=== PATIENT | female | born 1965 | race Caucasian/White ===

== ENCOUNTER 2018-11-14 08:22 | Emergency (ER) | payer BC ==
[2018-11-14 08:34] VITALS: BP 140/84
--- NOTE | 2018-11-14 09:02 | UC ---
Throat Pain/Nasal Melvin HPI - HPI Summary HPI Summary: The patient is a 53-year-old female that has had nasal congestion and postnasal drip as well as a mild sore throat for about 1 week. She has a moderate left occipital headache. She has had a low-grade temperature. She has had some mild myalgias as well as fatigue. - History of Current Complaint Chief Complaint: UCRespiratory Stated Complaint: SINUS Time Seen by Provider: 11/14/18 08:52 Hx Obtained From: Patient Hx Last Menstrual Period: hysterectomy 10 yrs ago Onset/Duration: Gradual Onset, Lasting Days Severity: Severe Pain Intensity: 8 Pain Scale Used: 0-10 Numeric Cough: None Associated Signs & Symptoms: Positive: Sinus Discomfort, Nasal Discharge, Fever - halima - Epiglottits Risk Factors Epiglottis Risk Factors: Negative - Allergies/Home Medications Allergies/Adverse Reactions: Allergies Allergy/AdvReac Type Severity Reaction Status Date / Time erythromycin base Allergy GI Upset Verified 11/14/18 08:34 Home Medications: Home Medications Acetaminophen [APAP] 650 mg PO 11/14/18 [History] Dm/Acetaminophen/Doxylamine [Vicks Nyquil Cold & Flu N 15-6.25-325 mg] 1 cap PO 11/14/18 [History] PMH/Surg Hx/FS Hx/Imm Hx Previously Healthy: Yes - Surgical History Surgical History: Yes Surgery Procedure, Year, and Place: hysterectomy 2003. . lt acl repair. D&C's - Family History Known Family History: Positive: Cardiac Disease, Hypertension, Diabetes - Social History Alcohol Use: Occasionally Substance Use Type: None Smoking Status (MU): Never Smoked Tobacco Review of Systems All Other Systems Reviewed And Are Negative: Yes Constitutional: Positive: Fever - halima, Fatigue Eyes: Positive: Negative ENT: Positive: Nasal Discharge, Sinus Congestion Respiratory: Positive: Cough Cardiovascular: Positive: Negative Gastrointestinal: Positive: Negative Musculoskeletal: Positive: Negative Neurological: Positive: Headache Psychological: Positive: Negative Is Patient Immunocompromised?: No Physical Exam Triage Information Reviewed: Yes Appearance: Well-Appearing, No Pain Distress, Well-Nourished Vital Signs: Initial Vital Signs Temp 98.4 F 11/14/18 08:30 Pulse 76 11/14/18 08:30 Resp 18 11/14/18 08:30 BP 140/84 11/14/18 08:30 Pulse Ox 98 11/14/18 08:30 Vital Signs Reviewed: Yes Eyes: Positive: Conjunctiva Clear ENT: Positive: Hearing grossly normal, Nasal congestion, Nasal drainage, Sinus tenderness - L>R Dental Exam: Normal Neck: Positive: Supple, Nontender, No Lymphadenopathy Respiratory: Positive: Lungs clear, Normal breath sounds, No respiratory distress, No accessory muscle use Cardiovascular: Positive: RRR, No Murmur Musculoskeletal: Positive: ROM Intact, No Edema Neurological: Positive: Alert Psychological Exam: Normal Skin Exam: Normal Throat Pain/Nasal Course/Dx - Differential Dx/Diagnosis Provider Diagnosis: Acute sinusitis Discharge - Sign-Out/Discharge Documenting (check all that apply): Patient Departure All imaging exams completed and their final reports reviewed: No Studies - Discharge Plan Condition: Stable Disposition: HOME Prescriptions: Amoxicillin PO (*) [Amoxicillin 875 MG (*)] 875 mg PO BID #14 tab Fluconazole 150 MG (NF) [Diflucan 150 mg (NF)] 150 mg PO ONCE #1 tab Fluticasone NASAL SPRAY 50MCG* [Flonase NASAL SPRAY 50MCG*] 2 spray BOTH NARES BID #1 btl Patient Education Materials: Sinusitis (ED) Referrals: Reed Anne MD [Primary Care Provider] - 1 Week (if not back to normal) Additional Instructions: saline nasal spray 2 sprays each nostril twice daily use flonase about 5 minutes later take diflucan if you develop a vaginal yeast infection - Billing Disposition and Condition Condition: STABLE Disposition: Home
== END 2018-11-14 09:11 | disposition home or self-care (01) ==
LOC: UCEAST 08:22
DX: J01.90 Acute sinusitis, unspecified (principal)
CPT/HCPCS: 99212; G0463